=== PATIENT | male | born 1995 | race Caucasian/White ===

== ENCOUNTER 2020-11-05 13:09 | Outpatient (CLI) | payer OTHER, SELFPAY ==
--- NOTE | 2020-11-05 13:25 | CT_ITS ---
WS: [id number] CT ABDOMEN WITH CONTRAST HISTORY: ELEVATED LIVER enzymes. Contiguous single phase 5 mm axial imaging performed to the abdomen. Oral contrast has been provided. Coronal and sagittal reformats are submitted. All CT scans at [facility] use at least on e of these dose optimization techniques: automated exposure control; mA and/or kV adjustment per kisha ent size (includes targeted exams where dose is matched to clinical indication); or iterative reconst ruction. CONTRAST: Omnipaque 300; 95 mL IV. DLP: 639.61 mGycm COMPARISON: None available. Lower thorax: Unremarkable. Liver: Normal. No intrahepatic dilatation. Gallbladder: Normal. Pancreas: Normal. Spleen: Normal. Adrenals: Normal. Right kidney: Normal. Left kidney: Normal. Aorta: Normal. GI tract: Normal. No adenopathy or free fluid. Abdominal wall: No hernia. Visualized osseous structures: Unremarkable. CT/CT abdomen w con* [id number] IMPRESSION: 1. Normal abdomen CT.
[2020-11-05] MEDS: iohexol 300 mg/mL 100 mL Btl IV (13:34)
== END 2020-11-05 13:10 | disposition home or self-care (01) ==
LOC: RADWPI 13:18
PROVIDERS: Visit Provider Nurse Practitioner
DX: R79.89 Other specified abnormal findings of blood chemistry (principal)
CPT/HCPCS: 74160; Q9967

== ENCOUNTER 2020-11-14 12:31 | Emergency (ER) | payer OTHER, SELFPAY ==
--- NOTE | 2020-11-14 12:36 | XR_ITS ---
WS: [id number] LEFT WRIST: 3 VIEW(S) TECHNIQUE: PA, oblique and lateral. HISTORY: injury COMPARISON: None available. No acute fracture or dislocation. No joint space abnormality. No soft tissue swelling. XR/XR wrist LT min 3V* [id number] IMPRESSION: Negative LEFT wrist.
--- NOTE | 2020-11-14 12:36 | ED_ITS ---
HPI - Extremity Injury (Upper) General: Chief Complaint: Extremity Injury, Upper Stated Complaint: injury to left wrist Time Seen by Provider: 11/14/20 12:36 Source: patient Mode of arrival: ambulatory Limitations: no limitations History of Present Illness: HPI narrative: Patient is a 25-year-old male who presents to ED today with a complaint of left wrist pain. Patient tells me after working all day yesterday he noticed pain in the wrist and states that evening he went to throw his child up in the air and when he caught them, he immediately felt a pop in his wrist and has continued to have pain since. He denies numbness, tingling, loss of sensation to his hand. He has not noticed any color or temperature changes. No previous injuries to his wrist. complaint: injury to: left and wrist Onset (ago): day(s) (yesterday) Other Extremity Injury: Left: wrist Other injuries: none Place: home Severity: mild Relieving factors: immobilization Exacerbating factors: movement of extremity Associated symptoms: Reports no associated symptoms; Denies weakness in extremities Review of Systems Const: Denies: fever(s) Card: Denies: chest pain Resp: Denies: dyspnea Musc: Reports: joint pain (L wrist) and joint swelling (L wrist); Denies: extremity pain or extremity swelling Neuro: Denies: numbness in extremities or weakness in extremities Physical Exam Const: COMMON NORMALS: no acute distress, average body habitus, patient oriented x3, no limitations, healthy appearing, alert and well nourished Extremity: COMMON NORMALS: full ROM GENERAL: Yes normal exam except as noted OTHER: TTP ulnar wrist; full ROM-pain with radial deviation; full painless ROM of all digits Neuro: COMMON NORMALS: patient oriented x3, moves all extremities, no focal motor deficits and no sensory deficits noted SENSORIUM/ORIENTATION: Yes alert Skin: COMMON NORMALS: no rashes or lesions noted GENERAL SKIN EXAM: no rashes or lesions noted Course Vital Signs: Vital signs: Vital Signs Temperature 98.3 F 11/14/20 12:40 Pulse Rate 68 11/14/20 13:22 Respiratory Rate 15 11/14/20 13:22 Blood Pressure 118/81 11/14/20 13:22 Pulse Oximetry 99 11/14/20 13:22 MDM - Extremity Injury (Upper) MDM Narrative: Medical decision making narrative: Patient placed in velcro wrist splint. Discussed ice/NSAIDS. Recommend follow up with PCP in 1-2 weeks if no improvement. Imaging Data^: XR L wrist: Radiologist's impression: [facility] [address] [place] [address] XRay Report Signed Patient: Keyur Horan Unit #: [id number] : 1995 Age/Sex: 25 / M ADM Date: 11/14/20 Loc: ER Room/Bed: Attending Dr: Ordering Provider/Ordering MD: Kailyn Vidal Date of Service: 11/14/20 Procedure(s): XR wrist LT min 3V* [id number] Accession Number(s): [id number] Report Number: [id number] WS: [id number] LEFT WRIST: 3 VIEW(S) TECHNIQUE: PA, oblique and lateral. HISTORY: injury COMPARISON: None available. No acute fracture or dislocation. No joint space abnormality. No soft tissue swelling. XR/XR wrist LT min 3V* [id number] IMPRESSION: Negative LEFT wrist. Dictated By: Giselle Gillis DO Signed By: Giselle Gillis DO Signed Date/Time: 11/14/20 1323 DD/ 1316 Discharge Plan Discharge Patient Disposition: Home Clinical Impression: Left wrist tendinitis Condition: Stable Prescriptions: No Action Adderall XR 25 mg Capsule,Extended Release 24hr 25 mg PO DAILY RF: 0 Discharge Orders: Discharge ED (Routine); Ordered 11/14/20 Ordered By: Kailyn Vidal Referrals: [facility] [Primary Care Provider] - Patient Instructions: Tendinitis (ED), Opioid Safety Activity Restrictions/Additional Instructions: [facility] is committed to fighting the nationwide opiate epidemic. We are providing ALL patients with information regarding opiate safety. If you received opiate pain medication during your stay or if you received a presc ription for opiate pain medication-please review this handout. If not, you may disregard. Thank you. Coding Level of Care Code ED Dock Manager for Chg Fwd Exam Expanded Problem Focused
[2020-11-14 12:40] VITALS: BP 127/77; PULSE 71; RESP 18; TEMP 36.8; O2SAT 100; BMI 21.5
[2020-11-14 13:22] VITALS: BP 118/81; PULSE 68; RESP 15; O2SAT 99
== END 2020-11-14 13:23 | disposition home or self-care (01) ==
PROVIDERS: Emergency Provider Physician Assistant
DX: M77.8 Other enthesopathies, not elsewhere classified (principal)
CPT/HCPCS: 29125; 73110; 99283

== ENCOUNTER 2021-02-24 06:00 | Outpatient (RCR) | payer OTHER, SELFPAY | END 2021-03-25 23:59 | disposition home or self-care (01) | LOC: SPT 06:00 | PROVIDERS: PCP Family Medicine; Referring Provider Family Medicine; Visit Provider Family Medicine | DX: M25.511 Pain in right shoulder (principal) | CPT/HCPCS: 97110; 97140; 97161 ==